=== PATIENT | female | born 1975 | race African-American/Black ===

== ENCOUNTER 2020-01-26 08:08 | Emergency (ER) | payer OTHER, SELFPAY ==
[2020-01-26 08:20] VITALS: BP 117/76; PULSE 63; RESP 18; TEMP 36.8; O2SAT 100
--- NOTE | 2020-01-26 08:29 | ED.GENADULT ---
HPI - General Adult General Chief complaint: Eye Problems Stated complaint: right eye pain Time Seen by Provider: 01/26/20 08:29 Source: patient and RN notes reviewed Mode of arrival: ambulatory Limitations: no limitations History of Present Illness HPI narrative: 44-year-old -Filipino female presents with complains of Right eye pain, photophobia, redness, sensation of foreign body for the past 2 days. Lumify eye drops without relief. Breana says she had false eyelashes applied at a salon on the night of 01/24/20 in which irritation to eye started and increased over the past 24 hours. Mild redness, no drainage. Exacerbating factor light. Relieving factors is closing eyes. Denies blurred vision, double vision, or pain of eye with movement. Wears glasses. The patient reports she have not been diagnosed with COVID-19. The patient reports she is not waiting for the results of a COVID-19 lab test. The patient reports she do not have fever, chills, weakness, fatigue, myalgia, or facial swelling. The patient reports she do not have a new or worsening cough or shortness of breath. Denies chest pain. The patient reports she do not have any rhinorrhea, congestion, no loss of taste, sore throat, nausea, vomiting, abdominal pain, and diarrhea. Tolerating po intake well. Denies recent traveling. Denies concerns for COVID-19 or exposures been home with limited outdoor exposure except for essential household needs, work, and return home. At this time, patient is not suspected of having COVID-19. Some parts of this dictation were generated by voice recognition software and may contain typographical and/or grammatical inaccuracies. Related Data Allergies Allergy/AdvReac Type Severity Reaction Status Date / Time No Known Allergies Allergy Verified 01/26/20 08:34 Review of Systems Review of Systems: Narrative: CONSTITUTIONAL: Denies fever, chills, sweats. EYES: Denies visual changes. Complains of RT eye redness, photophobia, and foreign body sensation. Denies discharge. ENT: Denies rhinorrhea, congestion, sore throat, otalgia. CARDIOVASCULAR: Denies chest pain, palpitations, edema. RESPIRATORY: Denies dyspnea, wheezing, cough. GASTROINTESTINAL: Denies abdominal pain, nausea, vomiting, diarrhea. GENITOURINARY: Denies dysuria, hematuria, abnormal discharge. SKIN: Denies rash or itching. MUSCULOSKELETAL: Denies acute back pain, joint pain, or myalgia. NEUROLOGIC: Denies numbness or focal weakness. PSYCHIATRIC: Denies anxiety or depression. All systems reviewed & are unremarkable except as noted in HPI and below. [facility] Past Medical History Medical History (Updated 01/26/20 @ 08:52 by GENARO Faustin) A-fib Kidney stones Surgical History Surgical History (Updated 01/26/20 @ 08:47 by GENARO Faustin) Hx of section Hx of eye surgery RT eye at age 13 Family History Family History (Updated 01/26/20 @ 09:01 by GENARO Faustin) Father Alive and well Mother Alive and well Grandparent Multiple sclerosis Social History Social History (Updated 01/26/20 @ 08:49 by GENARO Faustin) Smoking status: Former smoker Tobacco type: cigarettes Second hand tobacco smoke exposure: No Smoking end date: 05/18/99 Alcohol intake: current Substance use: never Living arrangements: with family Occupation/Education: occupation Gender identity (if verbalized by the patient): Female Sexual Orientation (if Verbalized by the Patient): Straight or Heterosexual Comments At time of signature, I have reviewed and agree with nursing past medical, surgical, social, and family history. Please see nursing chart for further information. There is no relevant family history pertinent to the presenting complaint. Exam Narrative: Exam Narrative: GENERAL: This is a well-nourished, well-developed patient, in no apparent distress. HEAD: normocephalic, atraumatic. EYES: PERRL. Sclera clear/white to
== END 2020-01-26 08:55 | disposition home or self-care (01) ==
PROVIDERS: Emergency Provider Nurse Practitioner Family
DX: S05.01XA Injury of conjunctiva and corneal abrasion without foreign body, right eye, initial encounter (principal); X58.XXXA Exposure to other specified factors, initial encounter; Z87.891 Personal history of nicotine dependence; I48.91 Unspecified atrial fibrillation
CPT/HCPCS: 99213; A9270; G0463

== ENCOUNTER 2021-02-13 10:15 | Emergency (ER) | payer OTHER, SELFPAY ==
[2021-02-13 10:20] VITALS: BP 120/82; PULSE 65; RESP 14; TEMP 36.9; O2SAT 100
--- NOTE | 2021-02-13 10:33 | ED.GENADULT ---
HPI - General Adult General Chief complaint: Neck Pain/Injury Stated complaint: pinched nerve back of neck with arm tingling Time Seen by Provider: 02/13/21 10:33 Source: patient Mode of arrival: ambulatory Limitations: no limitations History of Present Illness HPI narrative: Breana Valentin is a 45 yo female with a fic, PMH who comes to [facility] for concerns of left-sided arm pain and finger numbness that is gone on and off for a number of years. When she was 31 her biological father told her that MS ran in their family and that her grandmother had full blown MS required full care until her the patient is concerned that she has MS and when questioned about discussing that with her with her PCP she states that she has not been able to get an appointment and needs to choose a new PCP Related Data Allergies Allergy/AdvReac Type Severity Reaction Status Date / Time No Known Allergies Allergy Verified 02/13/21 10:36 Review of Systems Review of Systems: CONSTITUTIONAL: Denies fever, chills, sweats. EYES: Denies visual changes, redness, discharge. ENT: Denies rhinorrhea, congestion, sore throat, otalgia. CARDIOVASCULAR: Denies chest pain, palpitations, edema. RESPIRATORY: Denies dyspnea, wheezing, cough GASTROINTESTINAL: Denies abdominal pain, nausea, vomiting, diarrhea. GENITOURINARY: Denies dysuria, hematuria, abnormal discharge SKIN: Denies rash or itching. NEUROLOGIC: Denies numbness, or focal weakness. PSYCHIATRIC: Denies anxiety or depression. Left-sided arm tingling pain and numbness intermittently over the last few years; current episode for the last few weeks PMFSH Past Medical History Medical History A-fib Kidney stones Surgical History Surgical History Hx of section Hx of eye surgery RT eye at age 13 Family History Family History Father Alive and well Mother Alive and well Grandparent Multiple sclerosis Social History Social History (Updated 02/13/21 @ 12:26 by Loretta Wood CNP) Smoking status: Current some day smoker Tobacco type: cigarettes Second hand tobacco smoke exposure: No Smoking end date: 05/18/99 Additional smoking assessment comments: Smokes a few cigarettes here and there Alcohol intake: current Substance use: never Gender identity (if verbalized by the patient): Female Sexual Orientation (if Verbalized by the Patient): Straight or Heterosexual Comments At time of signature, I agree with nursing past medical, surgical, social and family history. There is no relevant family history pertinent to the presenting complaint. Exam Narrative: GENERAL: This is a well-nourished, well-developed patient, in mild distress. HEAD: normocephalic, atraumatic. EYES: PERRL. Sclera clear/white. Vision is grossly intact. EARS: External ears normal, auditory canals clear and without drainage, TMs normal without perforation. Hearing grossly intact. NOSE: External nose normal without nasal discharge, nares without redness, no rhinorrhea. THROAT: Mucous membranes moist, NECK: Neck supple, non-tender CARDIOVASCULAR: Regular rate and rhythm without murmurs, gallops, or rubs. RESPIRATORY: Clear to auscultation. Breath sounds equal bilaterally. No wheezes, rales, or rhonchi. GASTROINTESTINAL: Abdomen soft, SKIN: warm, intact with no suspicious lesions or rash, good texture and turgor. NEURO: awake, alert, and oriented to person, place and time. There were no obvious focal neurologic abnormalities. Steady gait-no neurological deficit muscle strength equal in all extremities, mild tenderness left side of neck with movement EXTREMITIES: Normal range of motion. BACK: Nontender without deformity Course Course Emergency Course: Patient here because of concerns of left-sided numbness and some pain for the last cou
[2021-02-13 10:38] VITALS: BP 120/82; PULSE 65; RESP 14; TEMP 36.9; O2SAT 100
== END 2021-02-13 11:03 | disposition home or self-care (01) ==
PROVIDERS: Emergency Provider Nurse Practitioner
DX: M54.10 Radiculopathy, site unspecified (principal); F17.210 Nicotine dependence, cigarettes, uncomplicated; I48.91 Unspecified atrial fibrillation
CPT/HCPCS: 99213; G0463

== ENCOUNTER 2021-05-08 16:46 | Emergency (ER) | payer OTHER, SELFPAY ==
[2021-05-08 17:30] VITALS: BP 136/70; PULSE 73; RESP 18; TEMP 36.7; O2SAT 100
--- NOTE | 2021-05-08 18:29 | ED.BACK ---
HPI - Back Pain/Injury General Chief Complaint: Back Pain/Injury Stated Complaint: back pain History of Present Illness HPI Narrative: ba this a 45-year-old female that presents to the urgent care states that she has been having back pain for 2 days. 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 she went to go been her back when has had back pain before but this time it is flared and she is not able to work Related Data Allergies Allergy/AdvReac Type Severity Reaction Status Date / Time No Known Allergies Allergy Verified 05/08/21 18:04 Review of Systems Review of Systems: Back pain mid All systems reviewed & are unremarkable except as noted in HPI and below PMFSH Past Medical History Medical History A-fib Kidney stones Surgical History Surgical History Hx of section Hx of eye surgery RT eye at age 13 Family History Family History Father Alive and well Mother Alive and well Grandparent Multiple sclerosis Social History Social History (Updated 02/13/21 @ 12:26 by Loretta Wood CNP) Smoking status: Current some day smoker Tobacco type: cigarettes Second hand tobacco smoke exposure: No Smoking end date: 05/18/99 Additional smoking assessment comments: Smokes a few cigarettes here and there Alcohol intake: current Substance use: never Gender identity (if verbalized by the patient): Female Sexual Orientation (if Verbalized by the Patient): Straight or Heterosexual Comments At time as signature, I have reviewed and agree with nursing past medical, social, surgical and family history. Please see nursing chart for further information. There is no relevant family history pertinent to the presenting complaint. Exam Narrative: GENERAL:Well-appearing, well-nourished, and in no acute distress. HEAD:Normocephalic EYES: PERRLA ENT: Nares clear, Mucous membranes moist. CHEST: Clear to auscultation. No respiratory distress. HEART: Regular rate and rhythm. Normal peripheral pulses. ABDOMEN: Soft, nontender, EXTREMITIES: Decreased l range of motion due to back pain. No edema. SKIN: Warm, dry, no rash. NEURO: No focal deficits. Alert and oriented x3. Course Vital Signs Vital signs: Vital Signs Temperature 98.0 F 05/08/21 17:30 Pulse Rate 73 05/08/21 17:30 Respiratory Rate 18 05/08/21 17:30 Blood Pressure 136/70 05/08/21 17:30 Pulse Oximetry 100 05/08/21 17:30 Temperature 98.0 F 05/08/21 17:30 Pulse Rate 73 05/08/21 17:30 Respiratory Rate 18 05/08/21 17:30 Blood Pressure 136/70 05/08/21 17:30 Pulse Oximetry 100 05/08/21 17:30 MDM - Back Pain/Injury Differential Diagnosis Differential diagnosis: Likely lumbar radiculopathy, sciatica, strain of lumbar region and thoracic back pain Discharge Plan Discharge Clinical Impression: Lumbar radiculopathy Strain of lumbar region Qualifiers: Encounter type: initial encounter Qualified Code(s): S39.012A - Strain of muscle, fascia and tendon of lower back, initial encounter Patient Disposition: Home, Self-Care Condition: Stable Instructions: Antibiotic Form, Low Back Strain (ED), Acute Low Back Pain (ED), Back Pain (ED) Additional Instructions: Avoid weight bearing until the pain subsides. Ice to the area 20-30 minutes 4-6 times a day Elevate above heart Tylenol for lesser pain Ibuprofen regularly for the next 2-3 days for the inflammation Follow up with your primary care provider if the condition is not improving within 1 week or sooner if the condition worsens with numbness, tingling, decrease sensation with weakness to seek ER. Prescriptions: New cyclobenzaprine 5 mg tablet 5 mg PO TID PRN (Reason: muscle spasm) Qty: 20 RF: 0 ibuprofen 800 mg tablet 800 mg PO TID PRN (Reason: pain) Qty: 30 RF: 0
== END 2021-05-08 18:35 | disposition home or self-care (01) ==
PROVIDERS: Emergency Provider Nurse Practitioner Family
DX: M54.16 Radiculopathy, lumbar region (principal); S39.012A Strain of muscle, fascia and tendon of lower back, initial encounter; X50.9XXA Other and unspecified overexertion or strenuous movements or postures, initial encounter; Y99.0 Civilian activity done for income or pay; I48.91 Unspecified atrial fibrillation
CPT/HCPCS: 99213; G0463

== ENCOUNTER 2021-05-21 17:58 | Emergency (ER) | payer OTHER, SELFPAY ==
[2021-05-21 18:17] VITALS: BP 133/88; PULSE 79; RESP 18; TEMP 36.9; O2SAT 100
--- NOTE | 2021-05-21 18:17 | ED.URI ---
HPI - URI/Sore Throat General Chief Complaint: Upper Respiratory Infection Stated Complaint: sore throat cough Time Seen by Provider: 05/21/21 18:17 Source: patient and RN notes reviewed History of Present Illness HPI Narrative: Patient is a 45-year-old female who presents the urgent care with complaints of a scratchy throat and cough for 1 day. Patient states that she has not taken anything [id number] for her symptoms. Denies of any known exposures to flu, Covid or strep. Patient has not been Covid vaccinated. Denies of any fever, nausea, vomiting. Patient does not appear ill. No other acute complaints. No acute distress noted. Patient read the plan of care. Some parts of this dictation were generated by voice recognition software and may contain typographical and/or grammatical inaccuracies. Related Data Allergies Allergy/AdvReac Type Severity Reaction Status Date / Time No Known Allergies Allergy Verified 05/08/21 18:04 Review of Systems Review of Systems: CONSTITUTIONAL: Denies fever, chills, or sweats. EYES: Denies visual changes, redness, or discharge. ENT: Denies rhinorrhea, congestion, otalgia. Reports of scratchy throat CARDIOVASCULAR: Denies chest pain, palpitations, or edema. RESPIRATORY: Reports a mild cough without dyspnea GASTROINTESTINAL: Denies abdominal pain, nausea, vomiting, or diarrhea. GENITOURINARY: Denies dysuria or hematuria. SKIN: Denies rash or itching. MUSCULOSKELETAL: Denies back pain, joint pain, or myalgia. NEUROLOGIC: Denies headache, numbness, or weakness. All other systems reviewed are negative, except as documented in HPI. PMFSH Past Medical History Medical History A-fib Kidney stones Surgical History Surgical History Hx of section Hx of eye surgery RT eye at age 13 Family History Family History Father Alive and well Mother Alive and well Grandparent Multiple sclerosis Social History Social History (Updated 02/13/21 @ 12:26 by Loretta Wood CNP) Smoking status: Current some day smoker Tobacco type: cigarettes Second hand tobacco smoke exposure: No Smoking end date: 05/18/99 Additional smoking assessment comments: Smokes a few cigarettes here and there Alcohol intake: current Substance use: never Gender identity (if verbalized by the patient): Female Sexual Orientation (if Verbalized by the Patient): Straight or Heterosexual Comments At the time of my signature, I reviewed and agree with the nursing past medical, surgical, social, and family history. There is no relevant family history pertinent to the patient complaint. Exam Narrative: GENERAL: This is a well-nourished, well-developed patient, in no apparent distress. HEAD: normocephalic, atraumatic. EYES: PERRL. Sclera clear/white. Vision is grossly intact. EARS: External ears normal, auditory canals clear and without drainage, TMs normal without perforation. Hearing grossly intact. NOSE: External nose normal with no obvious nasal discharge, nares without redness, no rhinorrhea. THROAT: Mucous membranes moist, posterior pharynx clear. Mild postnasal drainage NECK: Neck supple, non-tender without lymphadenopathy CARDIOVASCULAR: Regular rate and rhythm without murmurs, gallops, or rubs. RESPIRATORY: Clear to auscultation. Breath sounds equal bilaterally. No wheezes, rales, or rhonchi. SKIN: warm, intact with no suspicious lesions or rash, good texture and turgor. NEURO: awake, alert, and oriented to person, place and time. There were no obvious focal neurologic abnormalities. EXTREMITIES: No clubbing, cyanosis, or edema. Course Course Level of Care: Express Care Visit Vital Signs Vital signs: Vital Signs Temperature 98.4 F 05/21/21 18:17 Pulse Rate 79 05/21/21 18:17 Respiratory Rate 18 05/21/21 18:17
== END 2021-05-21 18:44 | disposition home or self-care (01) ==
PROVIDERS: Emergency Provider Nurse Practitioner Family; PCP Nurse Practitioner Family
DX: J02.9 Acute pharyngitis, unspecified (principal); F17.210 Nicotine dependence, cigarettes, uncomplicated; I48.91 Unspecified atrial fibrillation
CPT/HCPCS: 87081; 87880; 99213; G0463

== ENCOUNTER 2021-10-02 08:57 | Emergency (ER) | payer OTHER, SELFPAY ==
[2021-10-02 09:05] VITALS: BP 131/82; PULSE 80; RESP 16; TEMP 37.4; O2SAT 100
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
== END 2021-10-02 09:42 | disposition home or self-care (01) ==
PROVIDERS: Emergency Provider Nurse Practitioner
DX: S61.451A Open bite of right hand, initial encounter (principal); Y04.1XXA Assault by human bite, initial encounter; I48.91 Unspecified atrial fibrillation; Z72.0 Tobacco use
CPT/HCPCS: 99213; G0463

== ENCOUNTER 2022-04-04 08:17 | Emergency (ER) | payer OTHER, SELFPAY ==
[2022-04-04 08:37] VITALS: BP 112/79; PULSE 76; RESP 16; TEMP 36.9; O2SAT 100
--- NOTE | 2022-04-04 09:09 | ED.EXTPRO ---
HPI - Extremity Problem General Chief complaint: Extremity Problem,Nontraumatic Stated complaint: rt foot 2nd toe fungus/pain Time Seen by Provider: 04/04/22 09:12 Source: patient and RN notes reviewed Mode of arrival: ambulatory Limitations: no limitations History of Present Illness HPI Narrative: 46-year-old female presents with concern for toenail discoloration. She reports noticing the discoloration occur slowly over time, however over the last couple of days she feels like the 3rd right toe has become itchy and the nail is slightly aching. She denies any intervention. She denies any swelling, tenderness, drainage from the toe around the toenail. MD Complaint: other (Toenail discoloration) Related Data Allergies Allergy/AdvReac Type Severity Reaction Status Date / Time No Known Allergies Allergy Verified 04/04/22 08:50 Review of Systems Review of Systems: CONSTITUTIONAL: Denies malaise, chills, sweats, or fever. SKIN: Reports toenail discoloration, itching of the 3rd toe of the right foot MUSCULOSKELETAL: Denies musculoskeletal pain All systems reviewed & are unremarkable except as noted in HPI and below PMFSH Past Medical History Medical History A-fib Kidney stones Surgical History Surgical History Hx of section Hx of eye surgery RT eye at age 13 Family History Family History Father Alive and well Mother Alive and well Grandparent Multiple sclerosis Social History Social History (Updated 02/13/21 @ 12:26 by Loretta Wood, THEOLOGY PROFESSOR) Smoking status: Current some day smoker Tobacco type: cigarettes Second hand tobacco smoke exposure: No Smoking end date: 05/18/99 Additional smoking assessment comments: Smokes a few cigarettes here and there Alcohol intake: current Substance use: never Gender identity (if verbalized by the patient): Female Sexual Orientation (if Verbalized by the Patient): Straight or Heterosexual Comments At time of signature, agree with nursing past medical, surgical, social and family history. There is no relevant family history pertinent to the presenting complaint Exam Narrative: GENERAL: Well-appearing, well-nourished, and in no acute distress. HEAD: Normocephalic EYES: PERRLA ENT: Mucous membranes moist. NECK: Supple. No lymphadenopathy CHEST: He speaks in full sentences No respiratory distress. HEART: Regular rate and rhythm. SKIN: Warm, dry. Toenails noted to have dark discoloration and the nail bed consistent with onychomycosis, no surrounding erythema, edema, induration or drainage of any nail bed NEURO: Alert and oriented x3. PSYCH: Normal mood and affect Course Course Emergency Course: Advised patient that topical treatment is not typically effective, she needs to follow up with the primary care provider for further treatment. Topical cream given for the itching of her toe Patient is aware of diagnosis, understands and agrees to treatment plan. Anticipatory guidance given. Patient agrees to follow-up as directed and is aware of reasons to seek care at the emergency department. Portions of this record may have been created with voice recognition software Level of Care: Express Care Visit Vital Signs Vital signs: Vital Signs Temperature 98.5 F 04/04/22 08:37 Pulse Rate 76 04/04/22 08:37 Respiratory Rate 16 04/04/22 08:37 Blood Pressure 112/79 04/04/22 08:37 Pulse Oximetry 100 04/04/22 08:37 Temperature 98.5 F 04/04/22 08:37 Pulse Rate 76 04/04/22 08:37 Respiratory Rate 16 04/04/22 08:37 Blood Pressure 112/79 04/04/22 08:37 Pulse Oximetry 100 04/04/22 08:37 Reviewed. MDM - Extremity (Nontraumatic) MDM Narrative Medical decision making narrative: Exam findings show no acute concerns or changes; patient is non-toxic appeari
== END 2022-04-04 09:26 | disposition home or self-care (01) ==
PROVIDERS: Emergency Provider Nurse Practitioner; PCP Nurse Practitioner Family
DX: B35.1 Tinea unguium (principal); I48.91 Unspecified atrial fibrillation
CPT/HCPCS: 99213; G0463

== ENCOUNTER 2022-06-04 16:04 | Emergency (ER) | payer OTHER, SELFPAY ==
[2022-06-04 16:12] VITALS: BP 116/82; PULSE 81; RESP 18; TEMP 36.8; O2SAT 100
--- NOTE | 2022-06-04 16:33 | ED.BACK ---
HPI - Back Pain/Injury General Chief Complaint: Back Pain/Injury Stated Complaint: Back Pain Time Seen by Provider: 06/04/22 16:33 Source: patient Mode of arrival: ambulatory Limitations: no limitations History of Present Illness HPI Narrative: 46-year-old female presents with complaint of left-sided low back pain radiating into left lower extremity for 3-4 days. Reports that pain started after working out. States history of sciatica in the past and also is aware that she has to compress this. Patient taking ibuprofen and her ex-'s Flexeril without relief of pain. She is ambulatory with limp. Reports pressure on left leg increases back pain. Denies numbness tingling. No weakness to lower extremities. No loss of bowel or bladder. All systems reviewed and negative except as noted above. Related Data Allergies Allergy/AdvReac Type Severity Reaction Status Date / Time No Known Allergies Allergy Verified 06/04/22 16:22 Review of Systems Review of Systems: CONSTITUTIONAL: Denies fever, chills, or sweats. EYES: Denies visual changes, redness, or discharge. ENT: Denies rhinorrhea, congestion, sore throat, or otalgia. CARDIOVASCULAR: Denies chest pain, palpitations, or edema. RESPIRATORY: Denies cough or dyspnea. GASTROINTESTINAL: Denies abdominal pain, nausea, vomiting, or diarrhea. GENITOURINARY: Denies dysuria or hematuria. SKIN: Denies rash or itching. MUSCULOSKELETAL: Reports back pain. Denies joint pain, or myalgia. NEUROLOGIC: Denies headache, numbness, or weakness. PSYCHIATRIC: Denies anxiety or depression. All other systems reviewed are negative, except as documented in HPI. PMFSH Comments At time of signature, agree with nursing past medical, surgical, social and family history. There is no relevant family history pertinent to the presenting complaint. Exam Narrative: GENERAL: This is a well-nourished, well-developed patient, in no apparent distress. HEAD: normocephalic, atraumatic. EYES: PERRL. Sclera clear/white. Vision is grossly intact. EARS: External ears normal NOSE: External nose normal NECK: Neck supple, non-tender without lymphadenopathy, masses or thyromegaly. CARDIOVASCULAR: Regular rate and rhythm without murmurs, gallops, or rubs. RESPIRATORY: Clear to auscultation. Breath sounds equal bilaterally. No wheezes, rales, or rhonchi. SKIN: warm, Dry, intact with no suspicious lesions or rash, good texture and turgor. NEURO: awake, alert, and oriented to person, place and time. There were no obvious focal neurologic abnormalities. EXTREMITIES: No joint tenderness, effusion, or edema noted. BACK: no midline tenderness. Some tenderness to left SI joint. Positive left straight leg raise. Ambulatory with limp. Able to balance on bilateral legs. Course Course Level of Care: Express Care Visit Vital Signs Vital signs: Vital Signs Temperature 36.8 C 06/04/22 16:12 Pulse Rate 81 06/04/22 16:12 Respiratory Rate 18 06/04/22 16:12 Blood Pressure 116/82 06/04/22 16:12 Pulse Oximetry 100 06/04/22 16:12 Oxygen Delivery Room Air 06/04/22 16:12 Temperature 36.8 C 06/04/22 16:12 Pulse Rate 81 06/04/22 16:12 Respiratory Rate 18 06/04/22 16:12 Blood Pressure 116/82 06/04/22 16:12 Pulse Oximetry 100 06/04/22 16:12 Oxygen Delivery Room Air 06/04/22 16:12 Reviewed MDM - Back Pain/Injury MDM Narrative Medical decision making narrative: Patient is aware of diagnosis, understands and agrees to treatment plan. Anticipatory guidance given. Patient agrees to follow-up as directed and is aware of reasons to seek care at the emergency department. Portions of this record may have been created with voice recognition software no neuro deficits Differential Diagnosis Differential diagnosis: Likely lumbar radiculopathy and sciatica Discharge Plan Discharge Clinical Impression: Acute left-sided back pain with sciatica Patient Disposition: Home
[2022-06-04] MEDS: KETOROLAC (*BKC) 60 MG/2 ML VIAL IM (16:54)
== END 2022-06-04 17:05 | disposition home or self-care (01) ==
PROVIDERS: Emergency Provider Nurse Practitioner Family; PCP Emergency Medicine
DX: M54.42 Lumbago with sciatica, left side (principal)
CPT/HCPCS: 96372; 99213; G0463; J1885

== ENCOUNTER 2023-03-20 17:03 | Emergency (ER) | payer OTHER, SELFPAY ==
[2023-03-20 17:12] VITALS: BP 122/85; PULSE 80; RESP 18; TEMP 36.3; O2SAT 99
--- NOTE | 2023-03-20 17:29 | ED.EYEPROB ---
HPI - Eye Problem General Chief complaint: Eye Problems Stated complaint: Left Eye Problem Time Seen by Provider: 03/20/23 17:29 Source: patient Mode of arrival: ambulatory Limitations: no limitations History of Present Illness HPI Narrative: 47 yo F presents with c/o drainage to L eye for approx. 3 wks. has been rubbing drainage from eye and now has sore area to outer corner of L eye. States drainage seems to be worse when she has eyelashes on so has kept them off recenlty. No vision changes. Does not wear contacts. All systems reviewed and negative except as noted above. Related Data Allergies Allergy/AdvReac Type Severity Reaction Status Date / Time No Known Allergies Allergy Verified 03/20/23 17:33 Review of Systems Review of Systems: CONSTITUTIONAL: Denies fever, chills, or sweats. EYES: Denies visual changes, redness. Reports drainage from L eye. ENT: Denies rhinorrhea, congestion, sore throat, or otalgia. CARDIOVASCULAR: Denies chest pain, palpitations, or edema. RESPIRATORY: Denies cough or dyspnea. GASTROINTESTINAL: Denies abdominal pain, nausea, vomiting, or diarrhea. GENITOURINARY: Denies dysuria or hematuria. SKIN: Denies rash or itching. MUSCULOSKELETAL: Denies back pain, joint pain, or myalgia. NEUROLOGIC: Denies headache, numbness, or weakness. PSYCHIATRIC: Denies anxiety or depression. All other systems reviewed are negative, except as documented in HPI. [facility]LY [facility] Past Medical History Medical History (Updated 03/20/23 @ 17:37 by Anabel Souza NP) A-fib Kidney stones Surgical History Surgical History (Updated 06/11/22 @ 11:44 by Radha Eddy) Hx of section Hx of eye surgery RT eye at age 13 Family History Family History (System 06/11/22 @ 11:44 by Radha Eddy) Father Alive and well Mother Alive and well Grandparent Multiple sclerosis Social History Social History (System 06/11/22 @ 11:44 by Radha Eddy) Smoking status: Current some day smoker Tobacco type: cigarettes Second hand tobacco smoke exposure: No Smoking end date: 05/18/99 Additional smoking assessment comments: Smokes a few cigarettes here and there Alcohol intake: current Substance use: never Living arrangements: with family Occupation/Education: occupation Gender identity (if verbalized by the patient): Female Sexual Orientation (if Verbalized by the Patient): Straight or Heterosexual Comments At time of signature, agree with nursing past medical, surgical, social and family history. There is no relevant family history pertinent to the presenting complaint. Exam Narrative: GENERAL: This is a well-nourished, well-developed patient, in no apparent distress. HEAD: normocephalic, atraumatic. EYES: PERRL. Sclera clear/white. Vision is grossly intact. currently no drainage from eyes. sore irritated skin to lateral corner L eye. EARS: External ears normal NOSE: External nose normal NECK: Neck supple, non-tender without lymphadenopathy, masses or thyromegaly. CARDIOVASCULAR: Regular rate and rhythm without murmurs, gallops, or rubs. RESPIRATORY: Clear to auscultation. Breath sounds equal bilaterally. No wheezes, rales, or rhonchi. SKIN: warm, Dry, intact with no suspicious lesions or rash, good texture and turgor. NEURO: awake, alert, and oriented to person, place and time. There were no obvious focal neurologic abnormalities. EXTREMITIES: No joint tenderness, effusion, or edema noted. Course Course Level of Care: Express Care Visit Vital Signs Vital signs: Vital Signs Temperature 36.3 C L 03/20/23 17:12 Pulse Rate 80 03/20/23 17:12 Respiratory Rate 18 03/20/23 17:12 Blood Pressure 122/85 03/20/23 17:12 Pulse Oximetry 99 03/20/23 17:12 Oxygen Delivery Room Air 03/20/23 17:12 Temperature 36.3 C L 03/20/23 17:12 Pulse Rate 80 03/20/23 17:12 Respiratory Rate 18 03/20/23 17:12 Blood Pressure 122/85 03/20/23 1
== END 2023-03-20 17:40 | disposition home or self-care (01) ==
PROVIDERS: Emergency Provider Nurse Practitioner Family
DX: H57.89 Other specified disorders of eye and adnexa (principal); Z87.891 Personal history of nicotine dependence
CPT/HCPCS: 99213; G0463

== ENCOUNTER 2023-10-08 14:07 | Emergency (ER) | payer OTHER, SELFPAY ==
[2023-10-08 14:12] VITALS: BP 118/87; PULSE 73; RESP 20; TEMP 36.7; O2SAT 73
== END 2023-10-08 14:21 | disposition left against medical advice (07) ==
PROVIDERS: Emergency Provider Registered Nurse; PCP Pediatrics
DX: Z53.21 Procedure and treatment not carried out due to patient leaving prior to being seen by health care provider (principal)
CPT/HCPCS: 99199

== ENCOUNTER 2023-10-10 18:04 | Emergency (ER) | payer OTHER, SELFPAY ==
[2023-10-10 18:15] VITALS: BP 120/76; PULSE 70; RESP 20; TEMP 37.1; O2SAT 100
--- NOTE | 2023-10-10 18:27 | ED.SKABFB ---
HPI - Skin/Abscess/Foreign Bdy General Chief complaint: Skin/Abscess/Foreign Body Stated complaint: Left Index Finger/Skin Sore Time Seen by Provider: 10/10/23 18:22 Source: patient, RN notes reviewed and old records reviewed Mode of arrival: ambulatory Limitations: no limitations History of Present Illness HPI narrative: 48 year old female who presents to [facility] care with complaints of swelling and tenderness to the left index finger at the distal tip and to the upper nail bed for the past 5 days. Patient reports that she has not noted any drainage from area or increased redness, Patient reports that she has been taking some Ibuprofen for her symptoms. Patient is right hand dominant. MD complaint: other (swelling tenderness left index finger at nailbed) Onset (ago): day(s) (5) Severity scale (1-10): 4 Treatments prior to arrival: NSAID Related Data Allergies Allergy/AdvReac Type Severity Reaction Status Date / Time No Known Allergies Allergy Verified 03/20/23 17:33 Review of Systems Review of Systems: CONSTITUTIONAL: Denies fever, chills, or sweats. CARDIOVASCULAR: Denies chest pain, palpitations, or edema. RESPIRATORY: Denies cough or dyspnea. GASTROINTESTINAL: Denies abdominal pain, nausea, vomiting SKIN: Reports redness and swelling. Denies purulent drainage, vesicles, at distal tip and upper nailbed of left index finger MUSCULOSKELETAL: Denies myalgia.history of chronic back pain NEUROLOGIC: Denies headache, numbness All systems reviewed & are unremarkable except as noted in HPI and below PMFSH Past Medical History Medical History A-fib Chronic back pain Kidney stones Surgical History Surgical History Hx of section Hx of eye surgery RT eye at age 13 Family History Family History Father Alive and well Mother Alive and well Grandparent Multiple sclerosis Social History Social History Smoking status: Current some day smoker Tobacco type: cigarettes Second hand tobacco smoke exposure: No Smoking end date: 05/18/99 Additional smoking assessment comments: Smokes a few cigarettes here and there Alcohol intake: current Substance use: never Living arrangements: with family Occupation/Education: occupation Gender identity (if verbalized by the patient): Female Sexual Orientation (if Verbalized by the Patient): Straight or Heterosexual Comments At time of signature, agree with nursing past medical, surgical, social and family history. There is no relevant family history pertinent to the presenting complaint Exam Narrative: GENERAL: Well-appearing, well-nourished, and in no acute distress. HEAD: Normocephalic, atraumatic. EYES: PERRLA and EOMI. ENT: Nares clear, no rhinorrhea or epistaxis. Mucous membranes moist. NECK: Supple.no lymphadenopathy CHEST: Clear to auscultation. No respiratory distress. HEART: Regular rate and rhythm. No murmur heard. Normal peripheral pulses. ABDOMEN: Soft, nontender, nondistended, normal active bowel sounds. EXTREMITIES: Normal range of motion. No edema SKIN: Warm, dry. Erythema, tenderness,to left distal index finger and upper nail bed, no drainage or any pustule formation, movement sensation and circulation intact to left index finger and hand NEURO: No focal deficits. Alert and oriented x3. Course Course Emergency Course: Patient is aware of diagnosis, understands and agrees to treatment plan. Anticipatory guidance given. Patient agrees to follow-up as directed and is aware of reasons to seek care at the emergency department. Portions of this record may have been created with voice recognition software Level of Care: Express Care Visit Vital Signs Vital signs: Vital Signs Temperature 37.1 C 10/10/23
== END 2023-10-10 18:36 | disposition home or self-care (01) ==
PROVIDERS: Emergency Provider Registered Nurse; PCP Pediatrics
DX: L08.9 Local infection of the skin and subcutaneous tissue, unspecified (principal); I48.91 Unspecified atrial fibrillation
CPT/HCPCS: 99213; G0463

== ENCOUNTER 2024-03-22 11:55 | Emergency (ER) | payer OTHER, SELFPAY ==
--- NOTE | ~2024-03-22 | XR_ITS ---
EXAMINATION: XR wrist RT min 3V DATE: 03/22/2024 13:19 INDICATION: Right wrist swelling. TECHNIQUE: 4 views of right wrist were obtained. COMPARISON: None. FINDINGS: Alignment is normal. No fracture. There is mild osteoarthritis of triscaphe joint and first carpometacarpal joint. IMPRESSION: 1. Mild polyarticular osteoarthritis. Reviewed, dictated and finalized at location [facility]
[2024-03-22 12:01] VITALS: BP 120/86; PULSE 69; RESP 16; TEMP 36.8; O2SAT 100
--- NOTE | 2024-03-22 13:02 | ED.GENADULT ---
HPI - General Adult General Chief complaint: Extremity Injury, Upper Stated complaint: right wrist lump Source: patient Mode of arrival: ambulatory Limitations: no limitations History of Present Illness HPI narrative: 48-year-old female presented for complaint of swollen 'lump' to right wrist for about one week. States she noticed it after donating plasma 03/13. States she massaged it away, but then it returned. It is sensitive with deep pressure. No pain when it is not touched. Denies other injury. Reports occasional tingling to thumb. Related Data Home Medications Medication Instructions Recorded Confirmed No Home Medications 03/22/24 03/22/24 Allergies Allergy/AdvReac Type Severity Reaction Status Date / Time No Known Allergies Allergy Verified 03/22/24 12:02 Review of Systems Review of Systems: CONSTITUTIONAL: Denies body aches, fever, chills EYES: Denies visual changes ENT: Denies rhinorrhea, congestion CARDIOVASCULAR: Denies chest pain, palpitations, or edema. RESPIRATORY: Denies cough or dyspnea. GASTROINTESTINAL: Denies abdominal pain, nausea, vomiting, or diarrhea. SKIN: Denies rash, itching, or wounds. MUSCULOSKELETAL: Denies back pain, joint pain, or myalgia. NEUROLOGIC: Denies headache, numbness, tingling, or weakness. PSYCH: Denies depression or anxiety. All systems reviewed & are unremarkable except as noted in HPI and below PMFSH Past Medical History Medical History A-fib Chronic back pain Kidney stones Surgical History Surgical History Hx of section Hx of eye surgery RT eye at age 13 Family History Family History Father Alive and well Mother Alive and well Grandparent Multiple sclerosis Social History Social History Smoking status: Current some day smoker Tobacco type: cigarettes Second hand tobacco smoke exposure: No Smoking end date: 05/18/99 Additional smoking assessment comments: Smokes a few cigarettes here and there Alcohol intake: current Substance use: never Living arrangements: with family Occupation/Education: occupation Gender identity (if verbalized by the patient): Female Sexual Orientation (if Verbalized by the Patient): Straight or Heterosexual Comments At time of signature, I have reviewed and agree with nursing past medical, surgical, social and family history unless otherwise noted. Please see nursing chart for further information. There is no relevant family history pertinent to the presenting complaint Exam Narrative: GENERAL: Well-appearing, well-nourished, and in no acute distress. CHEST: Speaks in full sentences. No respiratory distress. HEART: Regular rate and rhythm. Normal and equal peripheral pulses. EXTREMITIES: Right distal radius volar aspect with approx 0.5cm subcutaneous firm nodule palpable, reports subjective pain with deep palpation, no fluctuance, no surrounding bruising or erythema. Not palpable with wrist flexion. Right hand has normal strength and sensation, normal range of motion. No open wounds,or obvious deformity; alignment normal, pulse palpable and equal bilaterally, skin warm, dry, pink. Capillary refill less than 3 seconds. SKIN: Warm, dry, no rash. NEURO: Alert and oriented x3. PSYCH: Normal mood and affect Course Course Emergency Course: Patient is aware of diagnosis, understands and agrees to treatment plan. Anticipatory guidance given. Patient agrees to follow-up as directed and is aware of reasons to seek care at the emergency department. Portions of this record may have been created with voice recognition software Level of Care: Express Care Visit Vital Signs Vital signs: Vital Signs Temperature 98.2 F 03/22/24 12:01 Pulse Rate 69 03/22/24 12:01 Respiratory Rate 16 03/22/24 12:01 Blood Pressure 120/86 03/22/24 12:01 Pulse Oximetry 100 03/22/24 12:01 Oxygen Delivery Room Air 03/22/24 12:01 Temperature 98.2 F 03/22/24 12:01 Pulse Rate 69 03/22/24 12:01 Respiratory Rate 16 03/22/24 12:01 Blood Pressure 120/86 03/22/24 12:01 Pulse Oximetry 100 03/22/24 12:01 Oxygen Delivery Room Air 03/22/24 12:01 Reviewed Medical Decision Making MDM Narrative Medical decision making narrative: Discussed physical exam findings and Xray. Advised supportive measures and signs/symptoms to go to the ER. Pt is appropriate for outpt treatment and f/u. Differential Diagnosis Differential Diagnosis: sprain/strain of wrist, Colles' fracture, wrist fracture, hand fracture, finger sprain, dislocation of finger, gout, cellulitis, arthritis, tendonitis Vital Signs Vital Signs: Vital Signs Temperature 98.2 F 03/22/24 12:01 Pulse Rate 69 03/22/24 12:01 Respiratory Rate 16 03/22/24 12:01 Blood Pressure 120/86 03/22/24 12:01 Pulse Oximetry 100 03/22/24 12:01 Oxygen Delivery Room Air 03/22/24 12:01 Temperature 98.2 F 03/22/24 12:01 Pulse Rate 69 03/22/24 12:01 Respiratory Rate 16 03/22/24 12:01 Blood Pressure 120/86 03/22/24 12:01 Pulse Oximetry 100 03/22/24 12:01 Oxygen Delivery Room Air 03/22/24 12:01 Imaging Data Radiologist's impression: Patient: Breana Celis : 1975 MR#: [id number] Age: 48 Acct:[id number] Loc: [facility] ADM Date: 03/22/24Attending Dr: Ordering Physician: Agustina Nguyen APRN Date of Service: 03/22/24 Procedure(s): XR wrist RT min 3V Accession Number(s): [id number] cc: Agustina Nguyen APRN; ESCAPE WHEEL TOOTH CUTTER PHYSICIAN~ EXAMINATION: XR wrist RT min 3V DATE: 03/22/2024 13:19 INDICATION: Right wrist swelling. TECHNIQUE: 4 views of right wrist were obtained. COMPARISON: None. FINDINGS: Alignment is normal. No fracture. There is mild osteoarthritis of triscaphe joint and first carpometacarpal joint. IMPRESSION: 1. Mild polyarticular osteoarthritis. Discharge Plan Discharge Clinical Impression: Subcutaneous nodule of right upper extremity Patient Disposition: Home, Self-Care Condition: Stable Instructions: Antibiotic Form, Ganglion Cyst (ED) Additional Instructions: Rest and elevate the right hand Apply ice 15-20 minute intervals several times a day Keep it wrapped with PHILLY as needed Motrin alternate with Tylenol every 8 hours as needed for pain Follow up with your primary care provider in 1 week Go to the ER for worsening symptoms or concerns Prescriptions: No Action No Home Medications Follow-up/Referrals: PHYSICIAN,ESCAPE WHEEL TOOTH CUTTER [Primary Care Provider] -
== END 2024-03-22 13:39 | disposition home or self-care (01) ==
PROVIDERS: Emergency Provider Nurse Practitioner Family
DX: R22.31 Localized swelling, mass and lump, right upper limb (principal); I48.91 Unspecified atrial fibrillation
CPT/HCPCS: 73110; 99213; G0463

== ENCOUNTER 2024-06-13 12:27 | Emergency (ER) | payer OTHER, SELFPAY ==
[2024-06-13 12:38] VITALS: BP 121/73; PULSE 69; RESP 14; TEMP 36.8; O2SAT 100
--- OUTSIDE RECORDS SUMMARY | 2024-06-13 13:00 | XMS_ITS | Clinical Summary ---
Author Organization [facility] Address [address] [place] [address] Care Team Providers Care Operations Recruiter Name Role Phone Lizet Lyles MD Primary Care Prov ider Allergies No known active allergies Medications No known medications Active Problems Problem Noted Date Diagnosed Date Acute streptococcal pharyngitis 06/29/2014 Overview (08/21/2016): Strep throat Neck pain 02/09/2014 Overview (08/21/2016): Neck pain Surgical History Surgery Date Site/Laterality Comments SECTION 05/18/2008 - 05/17/2009 Social History Tobacco Use Types Packs/Day Years Used Date Smoking Tobacco: Never Smokeless Tobacco: Never Alcohol Use Standard Drinks/Week Comments Not Currently 0 (1 standard drink = 0.6 oz pur e alcohol) AUDIT-C Answer Date Recorded Frequency of Alcohol Consumption Never 03/13/2019 Average Number of Drinks Not on file 019 Frequency of Binge Drinking Not on file 02/16 Hunger Vital Sign Answer Date Recorded Within the past 12 months, y ou worried that your food would run out before you got the money to buy more. Sometimes true Within the past 12 months, t he food you bought just didn't last and you didn't have money to get more. 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 Gender Identity Not on file Sexual Orientation Not on file Obstetrics History Last Filed Vital Signs Vital Sign Reading Time Taken Comments Blood Pressure 102/70 11/17/2023 1:00 PM CDT Pulse 61 11/17/2023 1:00 PM CDT Temperature 36.7 ??C (98 ??F) 11/17/2023 1:00 PM CDT Respiratory Rate 14 11/17/2023 1:00 PM CDT Oxygen Saturation 98% 03/13/2019 2:34 PM CDT Inhaled Oxygen Concentration - - Weight 65.8 kg (145 lb) 11/17/2023 1:00 PM CDT Height 165.1 cm (5' 5 ) 03/13/2019 8:52 AM CDT Body Mass Index 24.13 03/13/2019 8:52 AM CDT Plan of Treatment Health Maintenance Due Date Last Done Comments Breast Cancer Screening-Mammogram 1975 Cervical Cancer Screening 1975 Colon Cancer Screening-Colonoscopy 1975 Depression Screening 1975 Hepatitis C Screening 1975 DTaP/Tdap/Td Vaccine (1 - Tdap) 1986 Hepatitis B Screening 1993 Regular Well Visit/Exam 18-64 1993 Influenza Vaccine (#1) 2024 Pneumococcal vaccine <65 Aged Out No longer eligible based on patient's age to complete this topic Insurance [employer] [facility] Care Teams Operations Recruiter Relationship Specialty Start Date End Date Lizet Lyles MD [address] [place] [address] PCP - General Family Medicine 11/17/23
--- OUTSIDE RECORDS SUMMARY | 2024-06-13 13:00 | XMS_ITS | Referral Summary ---
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
--- OUTSIDE RECORDS SUMMARY | 2024-06-13 13:01 | XMS_ITS | Clinical Summary ---
Author Organization [facility] Address [address] [place] [address] Phone Care Team Providers Care Shield Installer Name Role Phone Presley, Loretta BIRCH CNP Primary Care Provider [phone] Luciano Frey MD Unavailable [phone] Allergies No known active allergies Medications amoxicillin-cla vulanate (AUGMENTIN) 875-125 MG Tablet 1 tablet by mouth twice daily with food. 14 Tab 9 Active Additional Information Patient not taking.Reported on 06/11/2023 cyclobenzaprine (FLEXERIL) 5 MG Tablet Take 1 Tablet by mouth 3 times daily as needed for Muscle spasms. 15 Tablet 3 Active Additional Information Patient not taking.Reported on 06/11/2023 ibuprofen (MOTRIN) 800 MG Tablet Take 1 Tablet by mouth every 8 hours. 30 Tablet 3 Active Active Problems Problem Noted Date Diagnosed Date Paronychia of finger of right hand 12/02/2018 Family History Medical History Relation Name Comments Glaucoma Maternal Grandfather Multiple Sclerosis Paternal Grandmother Depression Sister Relation Name Status Comments Father Alive Maternal Grandfather Mother Alive Paternal Grandmother Sister Social History Tobacco Use Types Packs/Day Years Used Date Smoking Tobacco: Former Smokeless Tobacco: Never Tobacco Cessation:Counseling Given: Not Answered Alcohol Use Standard Drinks/Week Comments Yes 0 (1 standard drink = 0.6 oz pur e alcohol) Comments No Sex and Gender Information Value Date Recorded Sex Assigned at Not on file Legal Sex Female 8:52 PM CDT Gender Identity Not on file Sexual Orientation Not on file Last Filed Vital Signs Vital Sign Reading Time Taken Comments Blood Pressure 120/78 06/11/2023 9:37 AM [employer] Pulse 76 06/11/2023 9:37 AM [employer] Temperature 36.3 ??C (97.3 ??F) 06/11/2023 9:37 AM CS T Respiratory Rate 18 06/11/2023 9:37 AM [employer] Oxygen Saturation 99% 06/11/2023 9:37 AM [employer] Inhaled Oxygen Concentration - - Weight 68 kg (150 lb) 06/11/2023 9:37 AM [employer] Height 165.1 cm (5' 5 ) 06/11/2023 9:37 AM [employer] Body Mass Index 24.96 06/11/2023 9:37 AM [employer] Plan of Treatment Health Maintenance Due Date Last Done Comments Hepatitis C Virus (HCV) Screening 1975 TdaP Immunization 1975 Hepatitis B Immunization (1 of 3 - 19+ 3-dose series) 1994 Pap Smear 1996 Cervical Cancer Screening (CCS) 2005 HPV/Cotest 2005 Discussion re Starting/Frequ ency of Mammograms 2015 Colonoscopy 2020 Colorectal Cancer Screening 2020 Influenza Immunization (#1) 2024 SARS-COV-2 Immunization ( season) 2024 Respiratory Syncytial Virus (RSV) Immunization (Adult) (1 - 1-dose 75+ series) 2050 Meningococcal Immunization (ACWY) Aged Out No longer eligible based on patient's age to complete this topic Pneumococcal Immunization Combined Aged Out No longer eligible based on patient's age to complete this topic Rotavirus Immunization Aged Out No lo nger eligible based on patient's age to complete this topic Insurance MEDICAID AETNA [facility] MEDICAID [employer] Care Teams Shield Installer Relationship Specialty Start Date End Date Loretta Presley APRN, [facility]LA[facility] [address] [place] [address] PCP - General Family Medicine 05/30/21 Luciano Frey MD [address] [place] [address] Consulting Physician Neurology 03/03/23
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
--- NOTE | 2024-06-13 13:28 | ED_ITS ---
HPI - Skin/Abscess/Foreign Bdy General Chief complaint: Skin/Abscess/Foreign Body Stated complaint: Rash Time Seen by Provider: 06/13/24 13:15 Source: patient, RN notes reviewed and old records reviewed Mode of arrival: ambulatory Limitations: no limitations History of Present Illness HPI narrative: 48 year old female who presents to [facility] care with complaints of rash to the dorsal aspect of her hands for the past 2 weeks which is itchy and nguyen. Patient reports that no one else in family has rash. Patient reports that she has been applying Vaseline and lotion to areas with no improvement in symptoms. Rash noted on dorsal aspect of hands which is dry and scaly on knuckle regions. Patient denies any exposure to any new medications, foods, soaps or cleaning chemicals or lotions complaint: rash Onset (ago): week(s) (2) Location: L hand and R hand (dorsal aspects along knuckles) Severity scale (1-10): 4 Quality: burning and pruritic Treatments prior to arrival: other (lotion and Vaseline) Related Data Allergies Allergy/AdvReac Type Severity Reaction Status Date / Time No Known Allergies Allergy Verified 06/13/24 12:40 Review of Systems Review of Systems: CONSTITUTIONAL: Denies fever, chills, or sweats. CARDIOVASCULAR: Denies chest pain, palpitations, or edema. RESPIRATORY: Denies cough or dyspnea. SKIN: Reports rash to bilateral hands along knuckle region which is itchy and nguyen no drainage scaly in appearance MUSCULOSKELETAL: Denies joint pain or myalgia. NEUROLOGIC: Denies headache, numbness, or weakness. All systems reviewed & are unremarkable except as noted in HPI and below PMFSH Past Medical History Medical History Chronic back pain Kidney stones A-fib Surgical History Surgical History Hx of eye surgery RT eye at age 13 Hx of section Family History Family History Father Alive and well Mother Alive and well Grandparent Multiple sclerosis Social History Social History Smoking status: Current some day smoker Tobacco type: cigarettes Second hand tobacco smoke exposure: No Smoking end date: 05/18/99 Additional smoking assessment comments: Smokes a few cigarettes here and there Alcohol intake: current Substance use: never Living arrangements: with family Occupation/Education: occupation Gender identity (if verbalized by the patient): Female Sexual Orientation (if Verbalized by the Patient): Straight or Heterosexual Comments At time of signature, agree with nursing past medical, surgical, social and family history. There is no relevant family history pertinent to the presenting complaint Exam Narrative: GENERAL: Well-appearing, well-nourished, and in no acute distress. HEAD: Normocephalic, atraumatic. EYES: PERRLA, conjunctivae clear, and EOMI. ENT: Mucous membranes moist. Oropharynx without edema, erythema or lesions. NECK: Supple. No lymphadenopathy CHEST: Clear to auscultation. No respiratory distress.SAO2 100% on room air HEART: Regular rate and rhythm. SKIN: Warm, dry.? Patches of raised erythema with scaly appearance along knuckles of bilateral hands which is itchy and nguyen NEURO:? Alert and oriented x3. PSYCH: Normal mood and affect Course Course Emergency Course: Patient is aware of diagnosis, understands and agrees to treatment plan.? Anticipatory guidance given.? Patient agrees to follow-up as directed and is aware of reasons to seek care at the emergency department. Portions of this record may have been created with voice recognition software Level of Care: Express Care Visit Vital Signs Vital signs: Vital Signs Temperature 36.8 C 06/13/24 12:38 Pulse Rate 69 06/13/24 12:38 Respiratory Rate 14 06/13/24 12:38 Blood Pressure 121/73 06/13/24 12:38 Pulse Oximetry 06/13/24 12:38 Oxygen Delivery Room Air 06/13/24 12:38 Temperature 36.8 C 06/13/24 12:38 Pulse Rate 69 06/13/24 12:38 Respiratory Rate 14 06/13/24 12:38 Blood Pressure 121/73 06/13/24 12:38 Pulse Oximetry 06/13/24 12:38 Oxygen Delivery Room Air 06/13/24 12:38 Reviewed MDM - Skin/Abscess/Foreign Bdy MDM Narrative Medical decision making narrative: Does not appear at this time to be erythema multiforme, bullous, SJS, TEN; no evidence at this time to suggest RMSF, endocarditis or Lyme disease; patient looks well, nontoxic and is tolerating oral intake; no neurologic signs or symptoms; no headache, photophobia or neck pain; afebrile; appropriate for initial outpatient treatment; discussed the importance of follow-up, patient agrees; question, viral exanthema, contact dermatitis, allergic dermatitis, eczema, urticaria.No soft palate or uvula edema, no tongue, lip edema or other mucosal involvement, no respiratory compromise, no stridor, no wheezing, no wheezing, no history of syncope, no hypotension, no nausea, vomiting, or diarrhea.? Instructed patient to go to nearest ER immediately for any worsening symptoms including but not limited to: fever, spreading rash, pain, sore throat, headache, dizziness, chest pain, trouble breathing, or any symptoms concerning to the patient. Differential Diagnosis Differential diagnosis: Likely cellulitis, eczema, contact dermatitis and other (psoriasis) Medical Records Attestation: I reviewed the patient's medical records. Critical Care Time Critical Care Time Critical Care Time: No Discharge Plan Discharge Clinical Impression: Contact dermatitis Qualifiers: Contact dermatitis type: unspecified Contact dermatitis trigger: unspecified trigger Qualified Code(s): L25.9 - Unspecified contact dermatitis, unspecified cause Patient Disposition: Home, Self-Care Condition: Stable Instructions: Contact Dermatitis (ED) Additional Instructions: Wash area twice daily with liquid Dial soap apply triamcinolone ointment to rash never apply this ointment to face watch for any increasing infection--redness, swelling, drainage Tylenol or ibuprofen for any fever pain follow up with PCP in 7-10 days for a wound check recheck if develop fever, chills, increasing symptom Go to the ER if your symptoms become worse of if ANY new symptoms develop Prednisone taper take as prescribed with food If your symptoms persist, change or worsen significantly before you can contact your personal physician then please, without delay, go to the emergency department for further evaluation. Follow-up with PCP in 7-10 days or sooner if needed Patient Language: Lithuanian Prescriptions: New triamcinolone acetonide 0.1 % ointment 1 applic topical BID Qty: 80 0RF Rx Instructions: apply to rash 2 times daily, never apply this medication to the face prednisone 10 mg tablet 10 mg PO DIRECTED Qty: 21 0RF Rx Instructions: see taper instructions 6 tabs day 1, 5 tabs day 2, 4 tabs day 3, 3 tabs day 4, 2 tabs day 5, 1 tab day 6 Follow-up/Referrals: UNKNOWN,DOCTOR [Primary Care Provider] - Time of Disposition: 13:32 Quality [place] Coma Scale Eyes: Open Verbal: Oriented and Alert Motor: Follows Commands Diony Coma Total Score: 15
== END 2024-06-13 13:30 | disposition home or self-care (01) ==
PROVIDERS: Emergency Provider Registered Nurse
DX: L25.9 Unspecified contact dermatitis, unspecified cause (principal); I48.91 Unspecified atrial fibrillation
CPT/HCPCS: 99213; G0463

== ENCOUNTER 2025-02-01 12:17 | Emergency (ER) | payer OTHER, SELFPAY ==
[2025-02-01 12:20] VITALS: BP 136/77; PULSE 64; RESP 20; TEMP 36.9; O2SAT 100
--- OUTSIDE RECORDS SUMMARY | 2025-02-01 12:26 | XMS_ITS | Encounter Summary ---
Author Organization [facility] Address [address] [place] [address] Phone Care Team Providers Care Mosaic Tile Maker Name Role Phone Loretta Presley APRN, CNP Primary Care Provider [phone] Luciano Frey MD Unavailable [phone] Reason for Referral * Radiology Services (Routine) - Authorized Specialty Diagnoses / Procedures Referred By Jermaine mc Referred To Contact Radiology Diagnoses Encounter for screening mammogram for breast cancer Procedures JASE SCREENING BILATERAL DIGITAL W CAD W PRIYA Loretta Presley APRN, CNP Phone: tel: fax: Referral ID Status Reason Start Date Expiration Date V isits Requested Visits Authorized [id number] Authorized 09/13/2024 1 1 Encounter Details Date Type Department Care Team (Late st Contact Info) Description 09/13/2024 Transcribe Orders [facility] Call Center [address] [place] [address] [place] [address] Loretta Presley APRN, CNP [address] [place] [id number] Encounter for screening mammogram for breast cancer (Primary Dx) Social History Tobacco Use Types Packs/Day Years Used Date Smoking Tobacco: Former Smokeless Tobacco: Never Alcohol Use Standard Drinks/Week Comments Yes 0 (1 standard drink = 0.6 oz pur e alcohol) Comments No Sex and Gender Information Value Date Recorded Sex Assigned at Not on file Legal Sex Female 8:52 PM CDT Gender Identity Not on file Sexual Orientation Not on file documented as of this encounter Plan of Treatment Upcoming Encounters Date Type Department Care Team (Late st Contact Info) Description 02/15/2025 2:00 PM CDT Appointment [facility] [address] [place] [address] Jaylen Benites MD [address], [address] [address] Discharge Disposition: Discharged to home or Selfcare Scheduled Orders Name Type Priority Associated Diagnoses Orde r Schedule JASE SCREENING BILATERAL DIGITAL W CAD W PRIYA Imaging Routine Encounter for screening mammogram for breast cancer Expected: 09/13/2024, Expires: 09/13/2025 documented as of this encounter Goals Goal Patient Goal Type Associated Problems Recent Progress Patient-Stated? Author Behavioral Health Behavioral Health On track(2024 12:06 PM CDT) Yes Lety Mcmahon, COMPLAINTS COORDINATOR Note: I would love to learn how to set healthy boundaries. Goal/Objective: Increase focus on coping skills, stress management strategies and self care toward emotional regulation and overall wellbeing. Anticipated Time Frame for Goal Completion: 6 months Goal Reviewed with: patient Readiness to change: Ready to change Department associated with goal: [facility] Steps to achieve goal: will attend counseling/psychotherapy sessions at least once monthly, at least 6 sessions, utilizing individual and/or group sessions to express thoughts and feelings. to identify, verbalize and process at least three contributing factors/triggers to anxiety and depression. to identify and verbalize at least three actions/skills to prevent and/or cope with anxiety and depression. to put into action, at least one time weekly, for one month, an action/skill to prevent and or cope with anxiety and depression. Depression Depression On track(2024 12:06 PM CDT) No Lety Mcmahon, COMPLAINTS COORDINATOR Note: Goal/Objective: Increase focus on coping skills, stress management strategies and self care toward emotional regulation and overall wellbeing. Anticipated Time Frame for Goal Completion: 6 months Goal Reviewed with: patient Readiness to change: Ready to change Department associated with goal: [facility] Steps to achieve goal: will attend counseling/psychotherapy sessions at least once monthly, at least 6 sessions, utilizing individual and/or group sessions to express thoughts and feelings. to identify, verbalize and process at least three contributing factors/triggers to anxiety and depression. to identify and verbalize at least three actions/skills to prevent and/or cope with anxiety and depression. to put into action, at least one time weekly, for one month, an action/skill to prevent and or cope with anxiety and depression. documented as of this encounter Visit Diagnoses Diagnosis Encounter for screening mammogram for breast cancer- Primary documented in this encounter Care Teams Mosaic Tile Maker Relationship Specialty Start Date End Date Loretta Presley APRN, CNP PCP - General Family Medicine 05/30/21 Luciano Frey MD [address] [place] [address] Consulting Physician Neurology 03/03/23 documented as of this encounter
--- OUTSIDE RECORDS SUMMARY | 2025-02-01 12:26 | XMS_ITS | Clinical Summary ---
Author Organization [facility] Address [address] [place] [address] Phone Care Team Providers Care Imaging Center Manager Name Role Phone Fernandez, Loretta BIRCH CNP Primary Care Provider [phone] Luciano Frey MD Unavailable [phone] Allergies No known active allergies Medications amoxicillin-cla vulanate (AUGMENTIN) 875-125 MG Tablet 1 tablet by mouth twice daily with food. 14 Tab 9 Active Additional Information Patient not taking.Reported on 09/14/2024 ibuprofen (MOTRIN) 800 MG Tablet Take 1 Tablet by mouth every 8 hours. 30 Tablet 3 Active Additional Information Patient not taking.Reported on 09/14/2024 Active Problems Problem Noted Date Diagnosed Date Major depressive disorder, recurrent episode, mo derate 09/08/2024 Adjustment disorder with anxious mood 09/08/2024 Paronychia of finger of right hand 12/02/2018 Encounters Date Type Department Care Team Description 12/27/2024 10:45 AM CDT Outpatient Clinic Visit [facility] [address] [place] [address] Lety Mcmahon, SPINNING FRAME CLEANER Major depressive disorder, recurrent episode, moderate (HCC) (Primary Dx); Adjustment disorder with anxious mood Discharge Disposition: Discharged to home or Selfcare 12/27/2024 Travel 12/14/2024 Transcribe Orders [facility] Central Scheduling [address] [place] [address] Jaylen Benites MD Syncope and collapse (Primary Dx) 12/06/2024 11:00 AM CDT [facility] [address] [place] [phone] Lety Mcmahon, SPINNING FRAME CLEANER Major depressive disorder, recurrent episode, moderate (HCC) (Primary Dx); Adjustment disorder with anxious mood Discharge Disposition: Discharged to home or Selfcare 12/06/2024 Travel 11/15/2024 11:00 AM CDT [facility] [address] [place] [phone] Lety Mcmahon, KARISSA Major depressive disorder, recurrent episode, moderate (HCC) (Primary Dx); Adjustment disorder with anxious mood Discharge Disposition: Discharged to home or Selfcare 11/15/2024 Travel 11/11/2024 [facility]phone [facility] [address] [place] [phone] Lety Mcmahon, SPINNING FRAME CLEANER 11/01/2024 11:00 AM CDT [facility] [address] [place] [phone] Lety Mcmahon, SPINNING FRAME CLEANER Major depressive disorder, recurrent episode, moderate (HCC) (Primary Dx); Adjustment disorder with anxious mood Discharge Disposition: Discharged to home or Selfcare 11/01/2024 Travel from Last 3 Months Family History Medical History Relation Name Comments Glaucoma Maternal Grandfather Multiple Sclerosis Paternal Grandmother Depression Sister Relation Name Status Comments Father Alive Maternal Grandfather Mother Alive Paternal Grandmother Sister Social History Tobacco Use Types Packs/Day Years Used Date Smoking Tobacco: Former Smokeless Tobacco: Never Tobacco Cessation:Counseling Given: Not Answered Alcohol Use Standard Drinks/Week Comments Not Currently 0 (1 standard drink = 0.6 oz pur e alcohol) Comments No Sex and Gender Information Value Date Recorded Sex Assigned at Not on file Legal Sex Female 8:52 PM CDT Gender Identity Not on file Sexual Orientation Not on file Last Filed Vital Signs Vital Sign Reading Time Taken Comments Blood Pressure 163/89 10/19/2024 5:45 PM CDT Pulse 63 10/19/2024 5:45 PM CDT Temperature 36.2 C (97.2 F) 10/19/2024 12:32 PM CDT Respiratory Rate 17 10/19/2024 12:32 PM CDT Oxygen Saturation 100% 10/19/2024 5:45 PM CDT Inhaled Oxygen Concentration - - Weight 63.5 kg (140 lb) 10/19/2024 12:32 PM CDT Height 165.1 cm (5' 5) 10/19/2024 12:32 PM CDT Body Mass Index 23.3 10/19/2024 12:32 PM CDT Plan of Treatment Upcoming Encounters Date Type Department Care Team (Late st Contact Info) Description 02/15/2025 2:00 PM CDT Appointment [facility] Services [address] [place] [address] Jaylen Benites MD [address] [address] Discharge Disposition: Discharged to home or Selfcare Health Maintenance Due Date Last Done Comments Hepatitis C Virus (HCV) Screening 1975 Mammogram 1975 Hepatitis B Immunization (1 of 3 - 19+ 3-dose series) 1994 Pap Smear 1996 Cervical Cancer Screening (CCS) 2005 HPV/Cotest 2005 Discussion re Starting/Frequ ency of Mammograms 2015 Cologuard 2020 Colonoscopy 2020 Colorectal Cancer Screening 2020 Immunochemical Fecal Occult Blood 2020 Influenza Immunization (#1) 2025 SARS-COV-2 Immunization ( season) 2025 Respiratory Syncytial Virus (RSV) Immunization (Adult) (1 - 1-dose 75+ series) 2050 DTaP/Tdap/Td Immunization Discontinued 09/06/2024 TdaP Immunization Completed 09/06/2024 Human Papillomavirus (HPV) Immunization Aged Out No longer eligible b ased on patient's age to complete this topic Meningococcal Immunization (ACWY) Aged Out No longer eligible based on patient's age to complete this topic Pneumococcal Immunization Combined Aged Out No longer eligible based on patient's age to complete this topic Rotavirus Immunization Aged Out No lo nger eligible based on patient's age to complete this topic Goals Goal Patient Goal Type Associated Problems Recent Progress Patient-Stated? Author Behavioral Health Behavioral Health On track(2024 12:06 PM CDT) Yes Lety Mcmahon LCSW Note: I would love to learn how to set healthy boundaries. Goal/Objective: Increase focus on coping skills, stress management strategies and self care toward emotional regulation and overall wellbeing. Anticipated Time Frame for Goal Completion: 6 months Goal Reviewed with: patient Readiness to change: Ready to change Department associated with goal: [facility] Steps to achieve goal: [...] On track(2024 12:06 PM CDT) No Lety Mcmahon LCSW Note: Goal/Objective: Increase focus on coping skills, stress management strategies and self care toward emotional regulation and overall wellbeing. Anticipated Time Frame for Goal Completion: 6 months Goal Reviewed with: patient Readiness to change: Ready to change Department associated with goal: [facility] Steps to achieve goal: [...] and or cope with anxiety and depression. Insurance MEDICAID [facility] MED[facility]ID [facility] Care Teams Imaging Center Manager Relationship Specialty Start Date End Date Loretta Presley APRN, CANVAS GOODS SUPERVISOR PCP - General Family Medicine 05/30/21 Luciano Frey MD [address] [place] [address] Consulting Physician Neurology 03/03/23
--- OUTSIDE RECORDS SUMMARY | 2025-02-01 12:26 | XMS_ITS | Clinical Summary ---
Author Organization [facility] Address [address] [place] [address] Care Team Providers Care Syrup Mixer Helper Name Role Phone Loretta Presley APRN-DIRECTOR HEMATOLOGY Primary Care Provider [phone] Source Comments [facility],non-owned Affiliates and Associated Physician Practices is amultiple site organization consisting of ambulatory clinics and hospital sitesin [place], [place]. This disclosure is being madepursuant to the Care Everywhere program and may not contain all information available regarding this patient. Last updated 18.[facility] Allergies No known active allergies Social History Tobacco Use Types Packs/Day Years Used Date Smoking Tobacco: Never Assessed Comments Unknown Sex and Gender Information Value Date Recorded Sex Assigned at Not on file Legal Sex Female 8:21 AM COLLISION REPAIRER Gender Identity Not on file Sexual Orientation Not on file Last Filed Vital Signs Vital Sign Reading Time Taken Comments Blood Pressure 156/104 10/18/2024 6:00 PM CDT Pulse 62 10/18/2024 6:00 PM CDT Temperature 36.8 C (98.2 F) 10/18/2024 2:00 PM CDT Respiratory Rate 20 10/18/2024 6:00 PM CDT Oxygen Saturation 100% 10/18/2024 6:00 PM CDT Inhaled Oxygen Concentration - - Weight - - Height - - Body Mass Index - - Plan of Treatment Health Maintenance Due Date Last Done Comments COLOGUARD (AGES 45-75) - COL ON CA SCREENING 1975 COLON MONITORING 1975 COLONOSCOPY - COLON CA SCREENING 1975 CT COLONOGRAPHY - COLON CA SCREENING 1975 Colorectal Cancer Screening 1975 FIT - COLON CA SCREENING 1975 FLEX SIG - COLON CA SCREENING 1975 LIPID TESTING 1975 MAMMOGRAM 1975 HIV SCREENING 1990 HEPATITIS C SCREENING 06/26/1993 DTAP/TDAP/TD VACCINES (1 - Tdap) 1994 HEPATITIS B VACCINE (1 of 3 - 19+ 3-dose series) 1994 PAP SMEAR 1996 DEPRESSION SCREENING 05/18/2024 COVID-19 VACCINE (1 - 2023-2 5 season) 2025 INFLUENZA VACCINE (#1) 2025 ZOSTER VACCINE (1 of 2) 2025 HIB VACCINE Aged Out No longer eligi ble based on patient's age to complete this topic HPV VACCINE Aged Out No longer eligi ble based on patient's age to complete this topic MENINGOCOCCAL (Group B) VACC INE SHARED DECISION-MAKING Aged Out No longer eligibl e based on patient's age to complete this topic MENINGOCOCCAL GROUPS A/C/Y/W VACCINE Aged Out No longer eligible b ased on patient's age to complete this topic Insurance MEDICAID [employer] [place] Care Teams Syrup Mixer Helper Relationship Specialty Start Date End Date Presley, Loretta, MENTAL HYGIENE CONSULTANT-KAYLAH [address] [place] [address] PCP - General Nurse Practitioner Family 10/18/24
--- OUTSIDE RECORDS SUMMARY | 2025-02-01 12:26 | XMS_ITS | Clinical Summary ---
Author Organization [facility] Address [address] [place] [address] Care Team Providers Care Bean Snipper Name Role Phone Lizet Lyles MD Primary Care Prov ider Allergies No known active allergies Medications No known medications Active Problems Problem Noted Date Diagnosed Date Acute streptococcal pharyngitis 06/29/2014 Overview (08/21/2016): Strep throat Neck pain 02/09/2014 Overview (08/21/2016): Neck pain Encounters Date Type Department Care Team Description 01/25/2025 1:00 PM CDT Therapy [facility] [address] [place] [id number] Lety Sexton, SILK BRUSHER Spinal stenosis, lumbar region without neurogenic claudication (Primary Dx) 01/17/2025 1:00 PM CDT Therapy [facility] [address] [place] [id number] Paty Faith, PT Spinal stenosis, lumbar region without neurogenic claudication (Primary Dx); Strain of muscle, fascia and tendon at neck level, initial encounter 01/02/2025 4:30 PM CDT Therapy [facility] [address] [place] [id number] Paty Faith, PT Spinal stenosis, lumbar region without neurogenic claudication (Primary Dx); Strain of muscle, fascia and tendon at neck level, initial encounter 01/02/2025 Plan of Care Documentation [facility] [address] [place] [id number] 12/08/2024 Telephone [facility] [address] [place] [id number] Paty Faith, PT Scheduling Appointments (Pt called wanting to know why she did not received a call to primitivo new appt. The states that she was told from the Dr office they did not received the ref. I explain to the pt the time and date we sent the order over. I also called the Dr office with the pt on the phone. Fausto at the Dr office stated they received the request but did not fax it back.. Fausto stated she'll talk to the Dr to get the POC and cont order faxed over. ) from Last 3 Months Surgical History Surgery Date Site/Laterality Comments SECTION [...] money to get more. Sometimes true 06/2023 Comments No Sex and Gender Information Value Date Recorded Sex Assigned at Not on file Legal Sex Female 12:31 AM PRODUCT CONTRO[employer]ER Gender Identity Not on file Sexual Orientation Not on file Obstetrics History Last Filed Vital Signs Vital Sign Reading Time Taken Comments Blood Pressure 102/70 11/17/2023 1:00 PM CDT Pulse 61 11/17/2023 1:00 PM CDT Temperature 36.7 C (98 F) 11/17/2023 1:00 PM CDT Respiratory Rate 14 11/17/2023 1:00 PM CDT Oxygen Saturation 98% 03/13/2019 2:34 PM CDT Inhaled Oxygen Concentration - - Weight 65.8 kg (145 lb) 11/17/2023 1:00 PM CDT Height 165.1 cm (5' 5) 03/13/2019 8:52 AM CDT Body Mass Index 24.13 03/13/2019 8:52 AM CDT Plan of Treatment Health Maintenance Due Date Last Done Comments Breast Cancer Screening-Mammogram 1975 Cervical Cancer Screening 1975 Colon Cancer Screening-Colonoscopy 1975 Depression Screening 1975 Hepatitis C Screening 1975 DTaP/Tdap/Td Vaccine (1 - Tdap) 1986 Hepatitis B Screening 1993 Regular Well Visit/Exam 18-64 1993 Influenza Vaccine (#1) 2025 Pneumococcal vaccine <65 Aged Out No longer eligible based on patient's age to complete this topic Insurance [facility] Care Teams Bean Snipper Relationship Specialty Start Date End Date Lizet Lyles MD [address] [place] [address] PCP - General Family Medicine 11/17/23
--- NOTE | 2025-02-01 20:38 | ED.GENADULT ---
HPI - General Adult General Chief complaint: Head Injury Stated complaint: Right side of head hit furnace Time Seen by Provider: 02/01/25 12:36 Source: patient and RN notes reviewed Mode of arrival: ambulatory Limitations: no limitations History of Present Illness HPI narrative: Patient presents today complaining of swelling and abrasion to the right pentecostalism area. Two days ago she accidentally hit the side of her head on her furnace while lighting her yard pilot light, causing an abrasion. Denies loss of consciousness. She has tried some ibuprofen and antibiotic ointment to the area, providing some improvement. Denies dizziness, lightheadedness, vision changes, neck pain. She does report some pain in the right TM joint causing some pain with opening and closing the mouth. Related Data Allergies Allergy/AdvReac Type Severity Reaction Status Date / Time No Known Allergies Allergy Verified 02/01/25 12:34 PMFSH Past Medical History Medical History Chronic back pain Kidney stones A-fib Surgical History Surgical History Hx of eye surgery RT eye at age 13 Hx of section Family History Family History Father Alive and well Mother Alive and well Grandparent Multiple sclerosis Social History Social History Smoking status: Current some day smoker Tobacco type: cigarettes Second hand tobacco smoke exposure: No Smoking end date: 05/18/99 Additional smoking assessment comments: Smokes a few cigarettes here and there Alcohol intake: current Substance use: never Living arrangements: with family Occupation/Education: occupation Gender identity (if verbalized by the patient): Female Sexual Orientation (if Verbalized by the Patient): Straight or Heterosexual Comments At time of signature, I have reviewed and agree with nursing past medical, surgical, social and family history unless otherwise noted. Please see nursing chart for further information. There is no relevant family history pertinent to the presenting complaint Exam Narrative: GENERAL: Well-appearing, well-nourished, and in no acute distress. HEAD: Normocephalic. Approx 2cm area to the right pentecostalism that has localized swelling and faint abrasion. TTP. EYES: EOMI. PERRL. No redness or drainage. Conjunctivae normal. ENT: Mucous membranes pink and moist. Nares clear. No rhinorrhea. TMs normal bilaterally. Tiny scab in the right ear canal with spot of blood that is TTP. Tenderness to the right TM joint that causes discomfort opening and closing mouth. NECK: Normal AROM. Supple. No lymphadenopathy. CHEST: No respiratory distress. Clear to auscultation. HEART: Regular rate and rhythm. No murmur appreciated. EXTREMITIES: Normal range of motion. No edema. SKIN: Warm, dry, no rash. Capillary refill normal. Normal skin turgor. NEURO: No focal deficits. Alert and oriented x3. Gait steady. PSYCH: Normal affect. No signs of depression or anxiety. Course Course Level of Care: Express Care Visit Vital Signs Vital signs: Vital Signs Temperature 98.5 F 02/01/25 12:20 Pulse Rate 64 02/01/25 12:20 Respiratory Rate 02/01/25 12:20 Blood Pressure 136/77 02/01/25 12:20 Pulse Oximetry 100 02/01/25 12:20 Oxygen Delivery Room Air 02/01/25 12:20 Temperature 98.5 F 02/01/25 12:20 Pulse Rate 64 02/01/25 12:20 Respiratory Rate 02/01/25 12:20 Blood Pressure 136/77 02/01/25 12:20 Pulse Oximetry 100 02/01/25 12:20 Oxygen Delivery Room Air 02/01/25 12:20 Review Medical Decision Making [facility] Narrative Medical decision making narrative: 49yo female patient presents today complaining of swelling and abrasion to the right pentecostalism area. Two days ago she accidentally hit the side of her head on her furnace while lighting her yard pilot light, causing an abrasion. Denies loss of consciousness. She has tried some ibuprofen and antibiotic ointment to the area, providing some improvement. Denies dizziness, lightheadedness, vision changes, neck pain. She does report some pain in the right TM joint causing some pain with opening and closing the mouth. Upon exam, patient has an area to the right pentecostalism that has some localized swelling and an overlying abrasion that is tender to palpation as well as some tenderness to the right TM joint that causes pain with opening and closing of the mouth. She also has a punctate scab to the right ear canal that is tender to palpation, likely due to scratch. Patient will be treated with some meloxicam and cyclobenzaprine for her TM and head discomfort/abrasion, contusion. Recommend PCP follow-up next week if symptoms persist. Vital signs stable. Anticipatory guidance given. Differential Diagnosis Differential Diagnosis: Abrasion, contusion, TM joint dysfunction Vital Signs Vital Signs: Vital Signs Temperature 98.5 F 02/01/25 12:20 Pulse Rate 64 02/01/25 12:20 Respiratory Rate 20 02/01/25 12:20 Blood Pressure 136/77 02/01/25 12:20 Pulse Oximetry 100 02/01/25 12:20 Oxygen Delivery Room Air 02/01/25 12:20 Temperature 98.5 F 02/01/25 12:20 Pulse Rate 64 02/01/25 12:20 Respiratory Rate 20 02/01/25 12:20 Blood Pressure 136/77 02/01/25 12:20 Pulse Oximetry 100 02/01/25 12:20 Oxygen Delivery Room Air 02/01/25 12:20 Critical Care Time Critical Care Time Critical Care Time: No Discharge Plan Discharge Clinical Impression: Jaw pain Contusion of scalp Qualifiers: Encounter type: initial encounter Qualified Code(s): S00.03XA - Contusion of scalp, initial encounter Abrasion of ear canal Qualifiers: Encounter type: initial encounter Laterality: right Qualified Code(s): S00.411A - Abrasion of right ear, initial encounter Patient Disposition: Home Condition: Stable Instructions: Contusion in Adults (ED), Abrasion (ED) Additional Instructions: Please take the meloxicam and Flexeril as prescribed. Do not drive within 8 hours of taking the Flexeril as it can make you drowsy. Stick with soft foods for the next couple of days to help with your jaw pain. Apply ice to your head to help with the inflammation. Follow-up with your PCP next week if symptoms are not improving. Your blood pressure was elevated above 120/80 today at Urgent Care. This puts you above the threshold for follow up. Please schedule a followup visit with your personal physician as soon as possible, for further evaluation and treatment. Even blood pressure exceeding 120/80 may indicate pre-hypertension. Patient Language: Congolese Prescriptions: New cyclobenzaprine 10 mg tablet 10 mg PO TID PRN (Reason: muscle spasm) Qty: 20 0RF meloxicam 15 mg tablet 15 mg PO DAILY Qty: 20 0RF Follow-up/Referrals: Fernandez,Loretta Griffin APN [Primary Care Provider, Unknown] Time of Disposition: 12:55
== END 2025-02-01 13:00 | disposition home or self-care (01) ==
PROVIDERS: Emergency Provider Nurse Practitioner; PCP Nurse Practitioner Family
DX: R68.84 Jaw pain (principal); S00.03XA Contusion of scalp, initial encounter; S00.411A Abrasion of right ear, initial encounter; W22.8XXA Striking against or struck by other objects, initial encounter; I48.91 Unspecified atrial fibrillation
CPT/HCPCS: 99213; G0463